=== PATIENT | male | born 1990 | race Caucasian/White ===

== ENCOUNTER → 2018-08-26 | Outpatient (CLI) | payer OTHER | LOC: CAT 11:00 | DX: Z13.6 Encounter for screening for cardiovascular disorders (principal); E78.00 Pure hypercholesterolemia, unspecified; I25.10 Atherosclerotic heart disease of native coronary artery without angina pectoris ==

== ENCOUNTER → 2018-10-07 | Outpatient (CLI) | payer OTHER ==
--- NOTE | 2018-10-07 14:00 | 2DMMODE ---
[facility] [employer] [place] [address] 2 D/M-MODE ECHOCARDIOGRAM Name: GARCÍA VARELA Room #: REG [facility]#: [id number] ������������� Admission: 10/07/18 ������������� Attend Phys: Chance Majano Discharge: ��� ������������� ��� Date of : 89 Date of Service: 10/07/18 1400 �� Report #: [id number] �������� ��������������������������������������������[id number] THIS REPORT FOR: //name// APPROVED REPORT Study performed: 10/07/2018 12:56:53 EXAM: Comprehensive 2D, Doppler, and color-flow Echocardiogram Patient Location: Out-Patient Room #: Echo Lab 2 Status: routine BSA: 2.18 HR: 93 bpm BP: 130/82 mmHg Rhythm: NSR Other Information Study Quality: Excellent Indications Arrhythmia 2D Dimensions RVDd: 25.43 mm IVSd: 9.77 (7-11mm) LVOT Diam: 21.42 (18-24mm) LVDd: 44.83 mm PWd: 10.46 (7-11mm) Ascending Ao: 30.06 (22-36mm) LVDs: 32.07 (25-40mm) Aortic Root: 32.01 mm Volumes Left Atrial Volume (Systole) Single Plane 4CH: 26.40 mL Single Plane 2CH: 35.58 mL LA ESV Index: 15.00 mL/m2 Aortic Valve AoV Peak Romero.: 1.15 m/s AO Peak Gr.: 5.33 mmHg LVOT Max P.68 mmHg LVOT Max V: 1.08 m/s LIZETTE Vmax: 3.37 cm2 Mitral Valve E/A Ratio: 1.1 MV Decel. Time: 173.07 ms MV E Max Romero.: 0.75 m/s [facility] [address] [place] [address] 2 D/M-MODE ECHOCARDIOGRAM Name: GARCÍA VARELA NASRA Room #: [facility]#: [id number] ������������� Admission: 10/07/18 ������������� Attend Phys: Chance Majano Discharge: ��� ������������� ��� Date of : 89 Date of Service: 10/07/18 1400 �� Report #: [id number] �������� ��������������������������������������������[id number] MV A Romero.: 0.68 m/s MV PHT: 50.19 ms IVRT: 83.04 ms Pulmonary Valve PV Peak Romero.: 1.15 m/s PV Peak Gr.: 5.28 mmHg Pulmonary Vein P Vein S: 0.55 m/s P Vein A: 0.27 m/s P Vein D: 0.45 m/s P Vein A Dur.: 73.8 msec P Vein S/D Ratio: 1.22 Tricuspid Valve PA Pressure: 5.00 mmHg Left Ventricle The left ventricle is normal size. There is normal LV segmental wall motion. There is normal left ventricular wall thickness. The left ventricular systolic function is normal. The left ventricular ejection fraction is within the normal range. LVEF is 55-60%. The left ventricular diastolic function is normal. Right Ventricle The right ventricle is normal size. The right ventricular systolic function is normal. Atria The left atrium size is normal. The right atrium size is normal. Aortic Valve The aortic valve is normal in structure. Trace aortic regurgitation. There is no aortic valvular stenosis. Mitral Valve The mitral valve is normal in structure. Trace mitral regurgitation. No evidence of mitral valve stenosis. Tricuspid Valve The tricuspid valve is normal in structure. Trace tricuspid regurgitation. Pulmonic Valve Pulmonic valve is not well visualized. [employer] [facility] [address] [place] [address] 2 D/M-MODE ECHOCARDIOGRAM Name: GARCÍA VARELA Room #: REG [facility]#: [id number] ������������� Admission: 10/07/18 ������������� Attend Phys: Chance Majano Discharge: ��� ������������� ��� Date of : 89 Date of Service: 10/07/18 1400 �� Report #: [id number] �������� ��������������������������������������������[id number] The aortic root is normal in size. IVC is normal in size and collapses >50% with inspiration. Pericardium There is no pericardial effusion. <Conclusion> The left ventricle is normal size. LVEF is 55-60%. The left ventricular diastolic function is normal. The right ventricle is normal size. The left atrium size is normal. The aortic valve is normal in structure. Trace mitral regurgitation. Trace tricuspid regurgitation. The aortic root is normal in size. There is no pericardial effusion. ��������������������������������������������� <ELECTRONICALLY SIGNED> ���������������������������������������� By: Lee Lucas MD, FACC ��������������������������������������������� 10/07/18 1400 1400 1400 Lee Lucas MD, FACC /INF
== END ==
LOC: CV 11:33
DX: I47.2 Ventricular tachycardia (principal)

== ENCOUNTER → 2019-12-04 | Outpatient (CLI) | payer OTHER | LOC: LAB 12:00 | PROVIDERS: ATTEND Nurse Practitioner | DX: Z20.828 Contact with and (suspected) exposure to other viral communicable diseases (principal) ==